=== PATIENT | male | born 1965 | race Caucasian/White ===

== ENCOUNTER 2024-11-01 02:19 | Inpatient (IN) | payer OTHER ==
[~2024-11-01] VITALS: Ht 175.3 cm; Wt 66.7 kg
[2024-11-01] VITALS (13 sets, daily range): BP systolic 106–126; BP diastolic 60–79; TEMP 97.5–98.9; O2SAT 96–99
[2024-11-01] MEDS ORDERED: TRANEXAMIC ACID 1,000 MG/10 ML VIAL ONE ×2 (02:41→03:06)
[2024-11-01] MEDS ORDERED: HYDROCORTISONE SOD SUCCINATE 100 MG/2 ML VIAL IV ONE (02:41)
[2024-11-01 02:46] LABS: BASOPHILS % (AUTO) 0.1 % (0.0-2.0); EOSINOPHILS # (AUTO) 0.1 K/uL (0.0-0.7); EOSINOPHILS % (AUTO) 0.4 % (0.0-7.0); HEMOGLOBIN 7.6 g/dL (12.5-16.3); LYMPHOCYTES % (AUTO) 15.5 % (20.5-51.5); MEAN CORPUSCULAR HEMOGLOBIN 25.7 uug (23.8-33.4); MEAN CORPUSCULAR HGB CONC 30 g/dL (32.5-36.3); MEAN CORPUSCULAR VOLUME 84.5 fL (73.0-96.2); MONOCYTES # (AUTO) 1.2 K/uL (0.1-1.30); MONOCYTES % (AUTO) 9.2 % (0.0-11.0); NEUTROPHILS # (AUTO) 9.6 K/uL (1.8-8.9); NEUTROPHILS % (AUTO) 74.8 % (38.5-71.5); PLATELET COUNT (AUTO) 718 K/uL (152-348); RED BLOOD CELL COUNT(AUTO) 2.96 MIL/uL (4.06-5.63); RED CELL DISTRIBUTION WIDTH 20.7 % (12.1-16.2); WHITE BLOOD COUNT (AUTO) 12.8 K/uL (3.6-10.2)
[2024-11-01] MEDS: IV NORMAL SALINE 1000 ML BAG IV ONE (02:46)
[2024-11-01 02:47] LABS: CALCIUM 8.8 mg/dL (8.5-10.1); CREATININE 1.7 mg/dL (0.6-1.3); POTASSIUM 4.2 mmol/L (3.5-5.1)
[2024-11-01 02:48] LABS: DIFFERENTIAL COMMENT 1
[2024-11-01 02:53] LABS: ALBUMIN 2.2 g/dL (3.4-5.0); BILIRUBIN,DIRECT 0.1 mg/dL (0.0-0.2); BILIRUBIN,TOTAL 0.5 mg/dL (0.2-1.0); TOTAL PROTEIN, SERUM 6.5 g/dL (6.4-8.2)
[2024-11-01] MEDS ORDERED: LEVO137T24 PO (02:56)
[2024-11-01] MEDS ORDERED: ATOR10TA PO (02:56)
[2024-11-01] MEDS ORDERED: TAMS-3 PO (02:56)
[2024-11-01] MEDS: HYDROCORTISONE SOD SUCCINATE 100 MG/2 ML VIAL IV ONE (03:01)
[2024-11-01] MEDS: TRANEXAMIC ACID 1,000 MG/10 ML VIAL IV ONE ×2 (03:01→03:11)
[2024-11-01] MEDS ORDERED: HYDROCORTISONE RECTAL SUPP 25 MG EACH RC ONE (03:03)
[2024-11-01 03:21] LABS: BAND % (MANUAL) 4 % (0-10); LYMPHOCYTES % (MANUAL) 15 % (20-40); MONOCYTES % (MANUAL) 8 % (2-10); MYELOCYTES % 1 % (0-0); NEUTROPHILS % (MANUAL) 72 % (42-75); PLATELET ESTIMATE INCREASED
[2024-11-01 03:22] LABS: ANISOCYTOSIS 1+; OVALOCYTES 1+
[2024-11-01] MEDS: HYDROCORTISONE RECTAL SUPP 25 MG EACH RC ONE (03:27)
[2024-11-01] MEDS ORDERED: ACETAMINOPHEN 325 MG TABLET PO PRN (04:00)
[2024-11-01] MEDS ORDERED: REMEDY ESSENTIAL ZINC PASTE 113 GM TP PRN (04:00)
[2024-11-01 04:03] LABS: LACTIC ACID 3.1 mmol/L (0.4-2.0)
[2024-11-01] MEDS ORDERED: CIPROFLOXACIN IV 200 ML IV ONE (06:12)
[2024-11-01] MEDS ORDERED: METRONIDAZOLE 500 MG/NS 100ML 100 ML IV ONE (06:13)
[2024-11-01] MEDS: CIPROFLOXACIN IV 400 MG in PREMIXED 1 EACH IV SCH ×2 (06:55→18:14)
[2024-11-01] MEDS: PANTOPRAZOLE SODIUM 40 MG VIAL IV SCH (08:48)
[2024-11-01] MEDS: IV LACTATED RINGERS SOLUTION 1,000 ML IV PRN (08:50)
[2024-11-01] MEDS: METRONIDAZOLE 500 MG/NS 100ML 500 MG in PREMIXED 1 EACH IV SCH (08:52)
[2024-11-01 11:51] LABS: HEMATOCRIT 21.5 % (36.7-47.1); HEMOGLOBIN 7.1 g/dL (12.5-16.3)
[2024-11-01] MEDS: methylPREDNISolone SOD SUCC 40 MG/ML VIAL IV SCH (12:58)
[2024-11-01] MEDS ORDERED: PRED10TA PO (13:24)
[2024-11-01] MEDS ORDERED: MESA1.2T3 PO (13:26)
[2024-11-01] MEDS ORDERED: LEVO125T8 PO (13:27)
[2024-11-01] MEDS ORDERED: ATOR40TA PO (13:28)
[2024-11-01 15:33] LABS: HEMATOCRIT 20.2 % (36.7-47.1); HEMOGLOBIN 6.6 g/dL (12.5-16.3)
[2024-11-01 19:30] LABS: HEMATOCRIT 19.6 % (36.7-47.1); HEMOGLOBIN 6.3 g/dL (12.5-16.3)
[2024-11-01] MEDS ORDERED: MESALAMINE ENEMA 4 G/60 ML BOTTLE RC SCH ×2 (21:00)
[2024-11-01] MEDS: MELATONIN 3 MG TABLET PO SCH (21:18)
[2024-11-02] VITALS: BP 130/78; TEMP 97.9; O2SAT 97
[2024-11-02 04:00] VITALS: BP 116/72; TEMP 98.1; O2SAT 98
[2024-11-02 06:45] LABS: HEMATOCRIT 23.4 % (36.7-47.1); HEMOGLOBIN 7.9 g/dL (12.5-16.3); LYMPHOCYTES # (AUTO) 0.6 K/uL (0.8-4.8); LYMPHOCYTES % (AUTO) 9.2 % (20.5-51.5); MEAN CORPUSCULAR HEMOGLOBIN 28.2 uug (23.8-33.4); MEAN CORPUSCULAR HGB CONC 34 g/dL (32.5-36.3); MEAN CORPUSCULAR VOLUME 83.8 fL (73.0-96.2); MONOCYTES # (AUTO) 0.6 K/uL (0.1-1.30); MONOCYTES % (AUTO) 8.6 % (0.0-11.0); NEUTROPHILS # (AUTO) 5.3 K/uL (1.8-8.9); NEUTROPHILS % (AUTO) 82.2 % (38.5-71.5); PLATELET COUNT (AUTO) 435 K/uL (152-348); RED BLOOD CELL COUNT(AUTO) 2.79 MIL/uL (4.06-5.63); WHITE BLOOD COUNT (AUTO) 6.4 K/uL (3.6-10.2)
[2024-11-02 06:46] LABS: DIFFERENTIAL COMMENT 1
[2024-11-02 06:54] LABS: CALCIUM 8.4 mg/dL (8.5-10.1); CREATININE 0.7 mg/dL (0.6-1.3); MAGNESIUM 2.3 mg/dL (1.8-2.4); PHOSPHOROUS 3.2 mg/dL (2.5-4.9); POTASSIUM 4.4 mmol/L (3.5-5.1)
[2024-11-02 07:51] VITALS: BP 120/71; TEMP 97.8; O2SAT 99
[2024-11-02 08:41] LABS: IRON, SERUM 40 ug/dL (50-175)
[2024-11-02 08:54] LABS: FERRITIN 538 ng/mL (26-388)
[2024-11-02] MEDS: ONDANSETRON 4 MG/2 ML VIAL IV PRN (11:37)
[2024-11-02 11:42] VITALS: BP 119/69; TEMP 97.7; O2SAT 97
[2024-11-02] MEDS: METRONIDAZOLE 500 MG TABLET PO SCH (14:35)
[2024-11-02] MEDS: LEVOTHYROXINE SODIUM 125 MCG TABLET PO SCH (15:28)
[2024-11-02 16:01] VITALS: BP 122/67; TEMP 98.2; O2SAT 97
[2024-11-02] MEDS ORDERED: ENSURE ENLIVE (VAN) 240 ML LIQUID PO SCH (17:00)
[2024-11-02] MEDS: TAMSULOSIN HCL 0.4 MG CAP.SR.24H PO SCH (17:37)
[2024-11-02] MEDS: ENSURE ENLIVE (VAN) 240 ML LIQUID PO SCH (17:37)
[2024-11-02 19:37] VITALS: BP 141/81; TEMP 98.1; O2SAT 97
[2024-11-02] MEDS: ATORVASTATIN 40 MG TABLET PO SCH (21:03)
[2024-11-03] MEDS: PANTOPRAZOLE SODIUM 40 MG TABLET.DR PO SCH (06:25)
[2024-11-03 06:57] LABS: BASOPHILS % (AUTO) 0.1 % (0.0-2.0); HEMATOCRIT 24.9 % (36.7-47.1); HEMOGLOBIN 8.3 g/dL (12.5-16.3); LYMPHOCYTES # (AUTO) 0.5 K/uL (0.8-4.8); LYMPHOCYTES % (AUTO) 6.3 % (20.5-51.5); MEAN CORPUSCULAR HEMOGLOBIN 28.3 uug (23.8-33.4); MEAN CORPUSCULAR HGB CONC 33 g/dL (32.5-36.3); MEAN CORPUSCULAR VOLUME 84.8 fL (73.0-96.2); MONOCYTES # (AUTO) 0.5 K/uL (0.1-1.30); MONOCYTES % (AUTO) 6.8 % (0.0-11.0); NEUTROPHILS # (AUTO) 6.7 K/uL (1.8-8.9); NEUTROPHILS % (AUTO) 86.8 % (38.5-71.5); PLATELET COUNT (AUTO) 469 K/uL (152-348); RED BLOOD CELL COUNT(AUTO) 2.94 MIL/uL (4.06-5.63); WHITE BLOOD COUNT (AUTO) 7.8 K/uL (3.6-10.2)
[2024-11-03 07:01] LABS: DIFFERENTIAL COMMENT 1
[2024-11-03 07:18] VITALS: BP 136/72; TEMP 98.2; O2SAT 96
[2024-11-03 11:29] VITALS: BP 126/68; TEMP 97.9; O2SAT 96
[2024-11-03 14:58] VITALS: BP 126/76; TEMP 98; O2SAT 97
[2024-11-03 19:30] VITALS: BP 127/78; TEMP 98.5; O2SAT 96
[2024-11-03] MEDS: TAMSULOSIN HCL 0.4 MG CAP.SR.24H PO SCH (21:28)
[2024-11-04 07:19] VITALS: BP 123/64; TEMP 98.2; O2SAT 98
[2024-11-04 09:10] LABS: BASOPHILS % (AUTO) 0.2 % (0.0-2.0); EOSINOPHILS % (AUTO) 0.5 % (0.0-7.0); HEMATOCRIT 28.5 % (36.7-47.1); HEMOGLOBIN 9.3 g/dL (12.5-16.3); LYMPHOCYTES # (AUTO) 0.7 K/uL (0.8-4.8); LYMPHOCYTES % (AUTO) 7.8 % (20.5-51.5); MEAN CORPUSCULAR HEMOGLOBIN 27.6 uug (23.8-33.4); MEAN CORPUSCULAR HGB CONC 33 g/dL (32.5-36.3); MEAN CORPUSCULAR VOLUME 84.6 fL (73.0-96.2); MONOCYTES # (AUTO) 0.4 K/uL (0.1-1.30); MONOCYTES % (AUTO) 4.2 % (0.0-11.0); NEUTROPHILS # (AUTO) 7.5 K/uL (1.8-8.9); NEUTROPHILS % (AUTO) 87.3 % (38.5-71.5); PLATELET COUNT (AUTO) 533 K/uL (152-348); RED BLOOD CELL COUNT(AUTO) 3.36 MIL/uL (4.06-5.63); RED CELL DISTRIBUTION WIDTH 20.4 % (12.1-16.2); WHITE BLOOD COUNT (AUTO) 8.6 K/uL (3.6-10.2)
[2024-11-04 09:11] LABS: DIFFERENTIAL COMMENT 1
[2024-11-04 15:30] VITALS: BP 128/81; TEMP 98.2; O2SAT 98
[2024-11-04] MEDS: predniSONE 20 MG TABLET PO SCH (18:13)
[2024-11-04 19:47] VITALS: BP 124/96; TEMP 98.7; O2SAT 99
[2024-11-04] MEDS: CIPROFLOXACIN HCL 250 MG TABLET PO SCH (20:18)
[2024-11-05 05:38] VITALS: BP 134/80; TEMP 97.9; O2SAT 94
[2024-11-05 06:05] LABS: BASOPHILS % (AUTO) 0.1 % (0.0-2.0); EOSINOPHILS % (AUTO) 0.3 % (0.0-7.0); HEMOGLOBIN 8.1 g/dL (12.5-16.3); LYMPHOCYTES # (AUTO) 0.8 K/uL (0.8-4.8); LYMPHOCYTES % (AUTO) 13.7 % (20.5-51.5); MEAN CORPUSCULAR HEMOGLOBIN 27.7 uug (23.8-33.4); MEAN CORPUSCULAR HGB CONC 32 g/dL (32.5-36.3); MEAN CORPUSCULAR VOLUME 85.4 fL (73.0-96.2); MONOCYTES # (AUTO) 0.5 K/uL (0.1-1.30); MONOCYTES % (AUTO) 8.3 % (0.0-11.0); NEUTROPHILS # (AUTO) 4.5 K/uL (1.8-8.9); NEUTROPHILS % (AUTO) 77.6 % (38.5-71.5); PLATELET COUNT (AUTO) 456 K/uL (152-348); RED BLOOD CELL COUNT(AUTO) 2.93 MIL/uL (4.06-5.63); RED CELL DISTRIBUTION WIDTH 20.9 % (12.1-16.2); WHITE BLOOD COUNT (AUTO) 5.8 K/uL (3.6-10.2)
[2024-11-05 06:21] LABS: DIFFERENTIAL COMMENT 1
[2024-11-05 11:19] VITALS: BP 127/77; TEMP 98; O2SAT 97
[2024-11-05 15:54] VITALS: BP 142/81; TEMP 97.8; O2SAT 97
[2024-11-05 19:00] VITALS: BP 135/84; TEMP 98.4; O2SAT 96
[2024-11-06] VITALS (9 sets, daily range): BP systolic 116–140; BP diastolic 73–84; TEMP 98–99; O2SAT 98
[2024-11-06 06:59] LABS: BASOPHILS % (AUTO) 0.1 % (0.0-2.0); EOSINOPHILS % (AUTO) 0.1 % (0.0-7.0); HEMATOCRIT 26.7 % (36.7-47.1); HEMOGLOBIN 8.7 g/dL (12.5-16.3); LYMPHOCYTES # (AUTO) 0.9 K/uL (0.8-4.8); LYMPHOCYTES % (AUTO) 14.8 % (20.5-51.5); MEAN CORPUSCULAR HEMOGLOBIN 27.8 uug (23.8-33.4); MEAN CORPUSCULAR HGB CONC 33 g/dL (32.5-36.3); MEAN CORPUSCULAR VOLUME 85.4 fL (73.0-96.2); MONOCYTES # (AUTO) 0.4 K/uL (0.1-1.30); MONOCYTES % (AUTO) 7.2 % (0.0-11.0); NEUTROPHILS # (AUTO) 4.7 K/uL (1.8-8.9); NEUTROPHILS % (AUTO) 77.8 % (38.5-71.5); PLATELET COUNT (AUTO) 504 K/uL (152-348); RED BLOOD CELL COUNT(AUTO) 3.13 MIL/uL (4.06-5.63); RED CELL DISTRIBUTION WIDTH 20.6 % (12.1-16.2); WHITE BLOOD COUNT (AUTO) 6.1 K/uL (3.6-10.2)
[2024-11-06 07:11] LABS: CALCIUM 8.3 mg/dL (8.5-10.1); CREATININE 0.7 mg/dL (0.6-1.3); MAGNESIUM 2.1 mg/dL (1.8-2.4); PHOSPHOROUS 3.9 mg/dL (2.5-4.9)
[2024-11-06 07:21] LABS: DIFFERENTIAL COMMENT 1
[2024-11-06] MEDS ORDERED: CIPR250T4 PO ×2 (12:21→13:18)
[2024-11-06] MEDS ORDERED: METR500T PO ×2 (12:21→13:18)
[2024-11-06] MEDS ORDERED: PRED20TA PO ×2 (12:21→13:18)
== END 2024-11-06 19:00 | disposition home or self-care (01) | DRG 385 ==
LOC: ER 02:27 → TELE3 03:59 → TELE-TD3 04:15 → DOU3 04:17 → TELE-TD3 07:25 → MEDSURG3 11-02 12:18
PROVIDERS: ADMIT Nurse Practitioner Family
PROC: 30233N1 Transfusion of Nonautologous Red Blood Cells into Peripheral Vein, Percutaneous Approach (ICD-10-PCS; principal; 2024-11-01)
PROC: 05H933Z Insertion of Infusion Device into Right Brachial Vein, Percutaneous Approach (ICD-10-PCS; 2024-11-01)
DX: K51.911 Ulcerative colitis, unspecified with rectal bleeding (principal); E43 Unspecified severe protein-calorie malnutrition; N17.0 Acute kidney failure with tubular necrosis; D62 Acute posthemorrhagic anemia; E87.20 Acidosis, unspecified; I31.39 Other pericardial effusion (noninflammatory); E87.1 Hypo-osmolality and hyponatremia; Z68.20 Body mass index [BMI] 20.0-20.9, adult; R79.82 Elevated C-reactive protein (CRP); E03.9 Hypothyroidism, unspecified; E78.5 Hyperlipidemia, unspecified; E88.09 Other disorders of plasma-protein metabolism, not elsewhere classified; N40.0 Benign prostatic hyperplasia without lower urinary tract symptoms; I10 Essential (primary) hypertension; R73.9 Hyperglycemia, unspecified; T38.0X5A Adverse effect of glucocorticoids and synthetic analogues, initial encounter; Y92.238 Other place in hospital as the place of occurrence of the external cause; R42 Dizziness and giddiness
CPT/HCPCS: 36415; 83550; 83605; 83735; 84100; 85018; 85025; 85730; 86140; 86850; 86900; 86901; 86920; 87040; 93307; G0378; J0744; J1720; J2405; J2470; J2919; J3490; J7040; J7120; J7512; P9016